=== PATIENT | female | born 1950 | race Caucasian/White ===

== ENCOUNTER → 2022-01-01 | Outpatient (CLI) | payer MEDICARE, OTHER ==
[~2022-01-01] MED LIST: ALLERGY RELIEF5 MG PO; AZELASTINE137 MCG/0.; BUSPIRONE HCL10 MG PO; CALCIUM 600 +1 EAC4 PO; DOCUSATE SODIU250 MG PO; FLONASE ALLER15.8 ML; HYDROCODONE-AC1 EACH PO; IBUPROFEN600 MG PO; LUTEIN20 MG PO; MIRALAX17 GM PO; PROTONIX 40 MG40 M1 PO
[2022-01-01 10:15] LABS: HEMOGLOBIN 13.3 gm/dl (12.3-15.3); RED BLOOD COUNT 4.1 M/UL (4.00-5.10); WHITE BLOOD COUNT 4.1 K/UL (4.5-11.0)
== END ==
LOC: OPSV2 09:00
PROVIDERS: Obstetrics & Gynecology
DX: Z01.812 Encounter for preprocedural laboratory examination (principal); Z88.5 Allergy status to narcotic agent; Z88.8 Allergy status to other drugs, medicaments and biological substances; N81.9 Female genital prolapse, unspecified
CPT/HCPCS: 81001; 85025

== ENCOUNTER → 2022-01-04 | Day surgery (SDC) | payer MEDICARE, OTHER | END | disposition home or self-care (01) | LOC: OR 05:55 → EDSTATUS 10:30 → OR 10:30 | DX: N81.3 Complete uterovaginal prolapse (principal); D25.1 Intramural leiomyoma of uterus; N72 Inflammatory disease of cervix uteri; D25.2 Subserosal leiomyoma of uterus; K59.00 Constipation, unspecified; R94.31 Abnormal electrocardiogram [ECG] [EKG]; M81.0 Age-related osteoporosis without current pathological fracture; K21.9 Gastro-esophageal reflux disease without esophagitis; Z88.5 Allergy status to narcotic agent; Z88.8 Allergy status to other drugs, medicaments and biological substances; Z20.822 Contact with and (suspected) exposure to COVID-19 | CPT/HCPCS: 71045; 93005; C1769; J0690; J1100; J1170; J2001; J2405; J2704; J2710; J3010; J7050; J7120 ==